=== PATIENT | male | born 1990 | race Caucasian/White ===

== ENCOUNTER 2018-09-08 20:52 | Emergency (ER) | payer BC, OTHER ==
[2018-09-08] MEDS ORDERED: IBUPROFEN 400 MG TABLET (FP) PO ONE ×2 (21:11→21:15)
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
[2018-09-08 21:28] VITALS: BP 151/94; PULSE 94; TEMP 98.3; BMI 26.6
== END 2018-09-08 21:30 | disposition home or self-care (01) ==
LOC: FER 20:52
DX: M25.512 Pain in left shoulder (principal); V43.52XA Car driver injured in collision with other type car in traffic accident, initial encounter; Y93.89 Activity, other specified; Y92.410 Unspecified street and highway as the place of occurrence of the external cause; E78.5 Hyperlipidemia, unspecified
CPT/HCPCS: 99282-25